=== PATIENT | female | born 1945 | race Caucasian/White ===

== ENCOUNTER → 2018-07-25 | Outpatient (CLI) | payer MEDICARE ==
[2018-07-25 11:37] LABS: Basophils % (A) 1 %; Eosinophils # (A) 0.4 k/uL (0-0.7); Eosinophils % (A) 7 %; HCT 38.3 % (34.0-46.0); HGB 12.4 gm/dL (11.4-16.0); Lymphocytes # (A) 1.4 k/uL (1.0-4.8); Lymphocytes % (A) 27 %; MCH 27.6 pg (25.0-35.0); MCHC 32.3 g/dL (31.0-37.0); MCV 85.5 fL (80.0-100.0); Mean Platelet Volume 6.2; Monocytes # (A) 0.3 k/uL (0-1.0); Monocytes % (A) 5 %; Neutrophils # (A) 2.9 k/uL (1.3-7.7); Neutrophils % (A) 57 %; Platelet Count 303 k/uL (150-450); RBC 4.48 m/uL (3.80-5.40); RDW 13.6 % (11.5-15.5)
[2018-07-25 11:42] LABS: Prothrombin Time 10.3 sec (9.0-12.0)
[2018-07-25 11:48] LABS: Albumin 3.4 g/dL (3.5-5.0); Calcium 8.5 mg/dL (8.4-10.2); Potassium 5.2 mmol/L (3.5-5.1); Total Bilirubin 1.1 mg/dL (0.2-1.3); Total Protein 6.1 g/dL (6.3-8.2)
== END ==
LOC: LABPAT 10:43
PROVIDERS: ATTEND Family Medicine
DX: Z01.812 Encounter for preprocedural laboratory examination (principal); S36.3 Injury of stomach; I10 Essential (primary) hypertension; E03.9 Hypothyroidism, unspecified; R10.10 Upper abdominal pain, unspecified; R11.0 Nausea; E11.8 Type 2 diabetes mellitus with unspecified complications; I07.1 Rheumatic tricuspid insufficiency
CPT/HCPCS: 80053; 82728; 84443; 85025; 85610; 87070

== ENCOUNTER → 2019-05-13 | Outpatient (CLI) | payer MEDICARE ==
[2019-05-13 12:44] LABS: Potassium 4.6 mmol/L (3.5-5.1)
[2019-05-13 12:51] LABS: Basophils # (A) 0.1 k/uL (0-0.2); Basophils % (A) 1 %; Eosinophils # (A) 0.3 k/uL (0-0.7); Eosinophils % (A) 4 %; HCT 37.5 % (34.0-46.0); HGB 12.1 gm/dL (11.4-16.0); Lymphocytes # (A) 1.4 k/uL (1.0-4.8); Lymphocytes % (A) 20 %; MCH 27.3 pg (25.0-35.0); MCHC 32.3 g/dL (31.0-37.0); MCV 84.5 fL (80.0-100.0); Mean Platelet Volume 6.2; Monocytes # (A) 0.4 k/uL (0-1.0); Monocytes % (A) 5 %; Neutrophils # (A) 4.8 k/uL (1.3-7.7); Neutrophils % (A) 68 %; Platelet Count 327 k/uL (150-450); RBC 4.44 m/uL (3.80-5.40); RDW 13.9 % (11.5-15.5); WBC 7.1 k/uL (3.8-10.6)
[2019-05-13 12:58] LABS: INR 0.9 (<1.2); Partial Thromboplastin Time 23.8 sec (22.0-30.0); Prothrombin Time 9.7 sec (9.0-12.0)
== END | disposition home or self-care (01) ==
LOC: LABPAT 11:38
PROVIDERS: ATTEND Orthopaedic Surgery
DX: Z01.812 Encounter for preprocedural laboratory examination (principal); M17.11 Unilateral primary osteoarthritis, right knee
CPT/HCPCS: 80051; 85025; 85610; 85730; 87070

== ENCOUNTER 2019-06-02 05:43 | Inpatient (IN) | payer MEDICARE ==
[2019-05-27 15:04] VITALS: BMI 29.4
--- NOTE | 2019-06-01 09:39 | HP ---
HISTORY AND PHYSICAL REASON FOR ADMISSION: Surgery 06/02/2019 Hailey Whittaker is a 73-year-old patient seen with symptomatic right knee osteoarthritis. We discussed treatment options with her. She elected to proceed with right total knee arthroplasty. Consent regarding the procedure was obtained. Cardiac clearance was provided by Dr. Espinosa. PAST MEDICAL HISTORY: Hypertension, [id number]-dezlcyuhs diabetes, hypothyroidism, gastroesophageal reflux disease. PAST SURGICAL HISTORY: Left ankle surgery, cholecystectomy, gastric bypass surgery. MEDICATIONS: Metformin, levothyroxine, Neurontin, Prilosec, Crestor, Lexapro, Plavix. ALLERGIES: AMLODIPINE, CODEINE. SOCIAL HISTORY: She denies current tobacco use. PHYSICAL EXAMINATION: Evaluation of the right knee: Range of motion is -5 to 115. Medial joint line tenderness, lateral joint line tenderness. Crepitus along the lateral patellofemoral compartments. Pain with patellofemoral compression. Ligaments stable. Hip rotation without pain. Distal neurovascular exam intact. Right knee radiographs reveal severe osteoarthritis. IMPRESSION: 1. Osteoarthritis. 2. Hypertension. 3. Hyperlipidemia. 4. Hypothyroidism. PLAN: Right total knee arthroplasty. Surgery scheduled for 06/02/2019. MMODL / IJN: [id number] /
[~2019-06-02 05:43] MED LIST: ACETAMINOPHEN TAB 500 MG TAB PO ONE; TRANEXAMIC ACID 1,000 MG in SODIUM CHLORIDE 0.9% 100 ML IVPB ONE
[2019-06-02] MEDS ORDERED: ROPIVACAINE 246.25 MG, EPINEPHrine 0.5 MG, KETOROLAC 30 MG, cloNIDine HCL/PF 80 MCG, WA... MISCELLANE ONE ×5 (06:00)
[2019-06-02] MEDS ORDERED: DEXAMETHASONE SOD PHOSPHATE 10 MG/ML 1 ML VIAL IV ONE (06:03)
[2019-06-02] MEDS ORDERED: ONDANSETRON 4 MG/2 ML VIAL IVP ONE (06:03)
[2019-06-02] MEDS ORDERED: MIDAZOLAM 2 MG/2 ML VIAL IV PRN (06:03)
[2019-06-02] MEDS ORDERED: LIDOCAINE 1% 20 ML VIAL (10MG/ML) FOR IV START INTRADERMA ONE (06:38)
[2019-06-02] MEDS: LACTATED RINGERS 1,000 ML IV SCH (06:38)
[2019-06-02 06:39] LABS: Glucose,Whole Blood 122 mg/dL (75-99)
[2019-06-02] MEDS ORDERED: fentaNYL (PF) 50 MCG/ML 2 ML AMP IV ONE (06:45)
[2019-06-02] MEDS ORDERED: MIDAZOLAM 2 MG/2 ML VIAL IV ONE (06:45)
[2019-06-02] MEDS ORDERED: TRANEXAMIC ACID 1,000 MG/10 ML VIAL ONE (07:18)
[2019-06-02] MEDS ORDERED: SODIUM CHLORIDE 0.9% 100 ML BAG ONE (07:18)
[2019-06-02] MEDS ORDERED: LIDOCAINE 1% INJ 10MG/ML (20 ML MDV) ONE (07:18)
[2019-06-02] MEDS ORDERED: PROPOFOL 10 MG/ML 20 ML VIAL IV ONE (07:18)
[2019-06-02] MEDS ORDERED: fentaNYL (PF) 50 MCG/ML 2 ML AMP ONE (07:18)
[2019-06-02] MEDS ORDERED: MIDAZOLAM 2 MG/2 ML VIAL ONE (07:18)
[2019-06-02] MEDS ORDERED: diphenhydrAMINE 50 MG/ML 1 ML VIAL ONE (07:18)
[2019-06-02] MEDS ORDERED: ROPIVACAINE 0.2%-NS ON-Q PUMP 1,090 MG, EMPTY PAIN BALL 1 EACH MISCELLANE PRN (07:53)
--- NOTE | 2019-06-02 07:55 | P.ANPRN ---
Procedure Note - Anesthesia - Nerve Block Performed Right Adductor Canal Infusion Time Out Performed: Yes Date of Procedure: 06/02/19 Procedure Start Time: 06:44 Procedure Stop Time: 06:56 Location of Patient Procedure: PreOp Indication: Acute Post-Operative Pain, Requested by Surgeon Specifically requested for management of pain by DrClement: Aleks Barnett Sedation Type: Sedate with meaningful contact maintained Preparation: Sterile Prep Position: Supine Catheter Depth at Skin (cm): 7 Catheter: Indwelling Needle Types: Pajunk Needle Gauge: 18 Ultrasound used to visualize needle placement: Yes Ultrasound used to observe medication spread: Yes Injectate: 0.5% Ropivacaine (see comment for volume) (20 cc) Blood Aspirated: No Pain Paresthesia on Injection Noted: No Resistance on Injection: Normal Image Stored and Saved: Yes Events: Uneventful and Well Tolerated
[2019-06-02] MEDS ORDERED: ceFAZolin 3,000 MG in SODIUM CHLORIDE 0.9% IRRIGATIO 3,000 ML IRRIGATION ONE (08:05)
[2019-06-02] MEDS ORDERED: LACTATED RINGERS 1,000 ML IV ONE (09:08)
[2019-06-02] MEDS ORDERED: NALOXONE 0.4 MG/ML 1 ML VIAL IV PRN (09:27)
[2019-06-02] MEDS ORDERED: ACETAMINOPHEN TAB 325 MG TAB PO PRN (09:27)
[2019-06-02] MEDS ORDERED: ONDANSETRON 4 MG/2 ML VIAL IVP PRN (09:27)
[2019-06-02] MEDS ORDERED: MAGNESIUM HYDROXIDE 2,400 MG/10 ML CUP PO PRN (09:27)
--- NOTE | 2019-06-02 09:41 | P.OP ---
Date of Procedure: 06/02/19 Preoperative Diagnosis: Right knee osteoarthritis Postoperative Diagnosis: Right knee osteoarthritis Procedure(s) Performed: Right total knee arthroplasty Implants: 1. Microport evolution size 5 right cemented femur 2. Microport evolution size 6 right cemented tibial baseplate 3. Microport evolution size 6 right 10 mm MP polyethylene tibial insert 4. Microport advanced 35 mm all polyethylene cemented patella Anesthesia: regional (Adductor canal catheter), local, spinal Surgeon: Aleks Barnett Mat Tester #1: Fabian Hernandez Estimated Blood Loss (ml): 25 Pathology: other (Bone) Condition: stable Disposition: PACU Indications for Procedure: 73-year-old patient seen with symptomatic right knee osteoarthritis. After treatment options were discussed, she elected to proceed with total knee arthroplasty. Operative Findings: see description of procedure Description of Procedure: Patient was taken to the operative suite after having an adductor canal catheter placed by the department of anesthesia for postoperative pain management. Patient underwent a spinal anesthetic by the department of anesthesia. Patient was given preoperative IV intake antibiotics and TXA. A well-padded tourniquet was placed about the right lower extremity. The lower extremity was then prepped and draped in the normal sterile orthopedic fashion. The extremity was elevated, a tourniquet was insufflated to 300. A standard anterior incision was made sharply through skin. Dissection was taken down through the subcutaneous soft tissues down to the extensor mechanism. A medial arthrotomy was performed, patella was everted and knee was flexed. There was advanced osteoarthritis noted. I introduced my distal intramedullary femoral drill. I then introduced the distal femoral cutting jig. Martin PEDERSEN secured the cutting jig with 2 pins. I held retractors in position while Martin PEDESREN performed the distal femoral resection through the guide area we now removed her distal femoral cutting guide. We now placed our 4-in-1 femoral cutting block and positioned and it was secured with 2 pins by Martin PEDERSEN while I held the block in position. The distal femoral finishing was now completed. A proximal tibial cutting guide was positioned. I held the guide in the appropriate position with both hands well Martin PEDERSEN inserted stabilizing pins into the guide. Proximal tibial cut was made. We now placed a trial femoral component into position, along with an appropriate size tibial tray and insert. We now took the knee through range of motion and had full extension good flexion and good overall soft tissue balance noted. The patella was everted and stabilized with 2 towel clips held by Martin PEDERSEN while I performed a flush with patellar quad tendon utilizing a fresh sawblade. We templated the patella, appropriate drill holes were made. An appropriate trial patella was positioned, knee was taken through full range of motion with the patella tracking very nicely. The trial patella was removed. Drill holes were made through the femoral component. All trial components were removed after marking off the appropriate rotation of the tibia. Retractors were now positioned along the proximal tibia. An appropriate keel punch was made with the appropriate size tibial guide by myself on Martin PEDERSEN assisted by holding retractors. At this point appropriate size implants were chosen and opened. The joint was irrigated copiously with pulse lavage mechanical irrigation. The posterior capsule was infiltrated with local analgesic. The wound was irrigated with pulse lavage mechanical irrigation. We mixed antibiotic methylmethacrylate. We placed the knee into flexion. We placed multiple retractors assisted by Martin PEDERSEN to expose the proximal tibia. Once the methyl methacrylate was ready, the tibial component was cemented into place removing any excess methylmethacrylate form by both myself and Martin PEDRESEN. The femoral component was cemented into place removing the removing any excess methylmethacrylate performed by both myself and Martin PEDERSEN. We then inserted the appropriate size polyethylene tibial insert. We made sure that it was locked into position. We took the knee into full extension, and then back in a flexion making sure we had removed any excess methylmethacrylate. The patellar component was then cemented down and secured with clamp. Excess methylmethacrylate removed. We kept the knee in full extension, patellar clamp in position until methylmethacrylate had hardened. Once it had hardened the patellar clamp was removed. The knee was taken through full range of motion. The patella tracked nicely. There was good soft tissue balancing. The tourniquet was now released. Additional hemostasis was achieved via electrocautery. A second gram of TXA was given. The wound again was irrigated with pulse lavage mechanical irrigation. The superficial soft tissues were infiltrated local analgesic. The extensor mechanism was repaired with Vicryl. We checked the repair with range of motion and it was stable. The subcutaneous soft tissues were repaired with Vicryl in layers. The skin was approximated with pernio/Dermabond. Sterile dressings were applied followed by loose web roll and Deion bandage. The patient was transferred to a bed, and taken to recovery in stable and satisfactory condition. Martin PEDERSEN assisted with this complex procedure.
--- NOTE | 2019-06-02 10:10 | XR ---
EXAMINATION TYPE: XR knee limited RT DATE OF EXAM: 06/02/2019 COMPARISON: NONE TECHNIQUE: Two views submitted HISTORY: Post op FINDINGS: There is a prosthetic knee in near anatomic alignment. There is soft tissue edema and emphysema. Ley rgical doc noted. IMPRESSION: 1. Postoperative change. Appears in near-anatomic alignment
[2019-06-02] MEDS: fentaNYL (PF) 50 MCG/ML 2 ML AMP IV PRN ×2 (10:50→12:00)
[2019-06-02] MEDS: HYDROcodone/APAP 5-325MG 1 EACH TAB PO PRN ×3 (13:25→20:09)
--- NOTE | 2019-06-02 16:00 | P.CONS ---
History of Present Illness - Reason for Consult Consult date: 06/02/19 Medical management Requesting physician: Aleks Barnett - Chief Complaint Medical management - History of Present Illness 73-year-old female with PMH of IBS, hypertension, hypothyroidism and osteoarthritis presents to [facility] for elective total right knee replacement. Patient was seen and examined after her procedure. Sound physicians as being consulted for medical management of this patient. Patient currently complains of knee pain, only when she ambulates to the washroom, 7 out of 10 in severity. She has received 2 [place] so far. Otherwise, patient with no complaints. She denies any headaches, nausea or vomiting, fever or chills, cough, chest pain, shortness of breath, changes in urination or bowel habits. No changes in appetite or weight. Patient denies any dizziness, numbness/weakness/tingling of the extremities. Patient states that she has been able to urinate since her procedure. Still has not had a bowel movement neither she is passing gas. Review of Systems Pertinent positives and negatives as discussed in HPI, a complete review of systems was performed and all other systems are negative. Past Medical History Past Medical History: Cancer, Diabetes Mellitus, Fibromyalgia, GERD/Reflux, GI Bleed, Hypertension, Osteoarthritis (OA), Rheumatoid Arthritis (RA), Thyroid Disorder Additional Past Medical History / Comment(s): Recently stopped Metformin per Dr due to Hemoglobin A1C being 5.9. Recent diagnosis of IBS-C. HX OF THYROID CANCER 2012, GI HEMORRHAGE (RECEIVED 8 UNITS OF BLOOD, 2016), OCCULAR MIGRAINES, VARICOSE VEINS, AORTIC STENOSIS, STATES ASBESTOSIS (DENIES SYMPTOMS), BACK AND RIGHT KNEE PAIN. Right hip pain. History of Any Multi-Drug Resistant Organisms: None Reported Past Surgical History: Adenoidectomy, Bariatric Surgery, Cardiac Valve Replacement, Cholecystectomy, Tonsillectomy Additional Past Surgical History / Comment(s): Aortic valve replaceemnt 12/09/2018. TOTAL THYROIDECTOMY, GASTRIC BYPASS (2008) ORIF left ankle with hardware. Past Anesthesia/Blood Transfusion Reactions: Motion Sickness Additional Past Anesthesia/Blood Transfusion Reaction / Comm: MOTION SICKNESS WITH OCCIPITAL MIGRAINES. HX OF BLOOD TRANSFUSIONS- NO REACTION. Past Psychological History: Anxiety Smoking Status: Former smoker Past Alcohol Use History: Occasional Additional Past Alcohol Use History / Comment(s): QUIT SMOKING in 1984. STARTED SMOKING AGE 17, SMOKED 1/2PPD. Past Drug Use History: None Reported - Past Family History Mother Family Medical History: Cancer Additional Family Medical History / Comment(s): BREAST CANCER. Father Family Medical History: COPD Additional Family Medical History / Comment(s): ASBESTOSIS. Brother(s) Family Medical History: Cancer Additional Family Medical History / Comment(s): MESOTHELIOMA. Medications and Allergies Home Medications Medication Instructions Recorded Confirmed Type ALPRAZolam [Xanax] 0.5 mg PO HS 07/18/18 06/02/19 History Gabapentin [Neurontin] 300 mg PO HS 07/18/18 06/02/19 History Levothyroxine Sodium [Synthroid] 137 mcg PO DAILY 07/18/18 06/02/19 History Magnesium Gluconate [Magonate] 500 mg PO HS 07/18/18 06/02/19 History Pantoprazole Sodium [Protonix] 40 mg PO BID 07/18/18 06/02/19 History traMADol HCL [Ultram] 50 mg PO DAILY 07/18/18 06/02/19 History Aspirin [Adult Low Dose Aspirin EC] 81 mg PO DAILY 05/27/19 06/02/19 History Carvedilol [Coreg] 3.125 mg PO BID 05/27/19 06/02/19 History Fiber 2 - 4 tab PO DAILY 05/27/19 06/02/19 History Lisinopril [Prinivil] 10 mg PO HS 05/27/19 06/02/19 History Loratadine [Claritin] 10 mg PO DAILY 05/27/19 06/02/19 History Lovastatin [Mevacor] 10 mg PO Q48H 05/27/19 06/02/19 History Sennosides [Senna] 2 tab PO DAILY 05/27/19 06/02/19 History Allergies Allergy/AdvReac Type Severity Reaction Status Date / Time codeine Allergy Unknown Chest Pain Verified 06/02/19 06:27 NSAIDS (Non-Steroidal Allergy Unknown HX OF GI Verified 06/02/19 06:27 Anti-Inflamma HEMMORHAGE Physical Exam Vitals: Vital Signs Temp Pulse Pulse Resp BP Pulse Ox 06/02/19 15:13 16 06/02/19 12:56 98.5 F 83 16 158/83 96 06/02/19 12:00 67 16 131/63 98 06/02/19 11:30 72 18 131/65 97 06/02/19 11:00 67 16 124/58 99 06/02/19 10:30 69 18 137/65 100 06/02/19 10:00 63 16 146/57 100 06/02/19 09:45 66 16 152/67 96 06/02/19 09:30 82 18 168/73 100 06/02/19 09:21 96.8 F L 70 16 180/74 100 06/02/19 06:15 97.2 F L 76 16 161/83 97 Intake and Output 06/02/19 06/02/19 06/02/19 06:59 14:59 22:59 Intake Total 200 1847 Output Total 25 Balance 200 1822 Intake: IV 200 1251 Oral 596 Output: Estimated Blood Loss 25 General: [non toxic], [no distress], [appears at stated age] Derm: [warm], [dry] Head: [atraumatic], [normocephalic], [symmetric] Eyes: [EOMI], [no lid lag], [anicteric sclera] Mouth: [no lip lesion], [mucus membranes moist] Cardiovascular: [S1S2 reg], [no murmur], [positive DP pulse bilateral], Lungs: [CTA bilateral], [no rhonchi, no rales] , [no accessory muscle use] Abdominal: [soft], [ nontender to palpation], [no guarding], [no appreciable organomegaly] Ext: [no gross muscle atrophy], [no edema], [no contractures], [right knee wrapped with dressing clean dry and intact, limited range of motion due to pain and stiffness] Neuro: [ CN II-XI grossly intact], [no focal neuro deficits] Psych: [Alert], [oriented], [appropriate affect] Results Labs: Abnormal Lab Results - Last 24 Hours (Table) 06/02/19 Range/Units 06:34 POC Glucose (mg/dL) 122 H (75-99) mg/dL Assessment and Plan Assessment: Assessment and plan Irritable bowel syndrome Hypertension Hypothyroidism History of aortic valve replacement Status post total right knee replacement Plans: Aggressive bowel regimen. BP 158/83. Plans: Continue Coreg, lisinopril. Monitor vitals, adjust medications as necessary. Plans: Resume Synthroid. Plans: Need adequate follow-up with cardiology in the outpatient setting. Plans: Management as per orthopedic surgery. DVT prophylaxis: [SCD boots] Discussed with: [Patient] Anticipated discharge: [1 day] Anticipated discharge place: [Home] A total of [45] minutes was spent on the care of this complex patient more than 50% of the time was spent in counseling and care coordination. Patient names her sons Wallace and Loy decision-maker in the case that she can't make decisions for herself. Patient reiterates wanting to remain full code at this time. Thank you for this consultation. Please call with any additional questions or concerns.
[2019-06-02] MEDS: CARVEDILOL 3.125 MG TAB PO SCH (16:36)
[2019-06-02] MEDS: PANTOPRAZOLE 40 MG TABLET PO SCH (16:36)
[2019-06-02] MEDS: HYDROmorphone 0.5 MG/0.5 ML SYRINGE IVP PRN (16:37)
[2019-06-02] MEDS: LISINOPRIL 10 MG TAB PO SCH (21:33)
[2019-06-02] MEDS: ALPRAZolam 0.5 MG TAB PO SCH (21:33)
[2019-06-02] MEDS: GABAPENTIN 300 MG CAP PO SCH (21:33)
[2019-06-02] MEDS: SENNOSIDES-DOCUSATE SODIUM 1 EACH TAB PO SCH (21:33)
[2019-06-03] MEDS: HYDROmorphone 0.5 MG/0.5 ML SYRINGE IVP PRN ×4 (00:02→16:54)
[2019-06-03] MEDS: traMADol 50 MG TAB PO PRN ×5 (02:19→23:25)
[2019-06-03] MEDS: LACTATED RINGERS 1,000 ML IV SCH (04:27)
[2019-06-03] MEDS: HYDROcodone/APAP 5-325MG 1 EACH TAB PO PRN (05:21)
[2019-06-03] MEDS: LEVOTHYROXINE 137 MCG TAB PO SCH (05:21)
[2019-06-03] MEDS: SENNOSIDES 8.6 MG TAB PO SCH (07:30)
[2019-06-03] MEDS: ENOXAPARIN 40 MG/0.4 ML SYRINGE SQ SCH (07:31)
[2019-06-03] MEDS: PANTOPRAZOLE 40 MG TABLET PO SCH ×2 (07:31→16:54)
[2019-06-03] MEDS: ASPIRIN 81 MG PO SCH (07:31)
[2019-06-03] MEDS: CARVEDILOL 3.125 MG TAB PO SCH ×2 (07:31→16:54)
[2019-06-03 07:41] LABS: Basophils % (A) 0 %; Eosinophils # (A) 0.1 k/uL (0-0.7); Eosinophils % (A) 1 %; HCT 31.2 % (34.0-46.0); HGB 10.1 gm/dL (11.4-16.0); Lymphocytes # (A) 1.2 k/uL (1.0-4.8); Lymphocytes % (A) 12 %; MCHC 32.4 g/dL (31.0-37.0); MCV 83.3 fL (80.0-100.0); Mean Platelet Volume 5.7; Monocytes # (A) 0.6 k/uL (0-1.0); Monocytes % (A) 6 %; Neutrophils % (A) 79 %; Platelet Count 271 k/uL (150-450); RBC 3.75 m/uL (3.80-5.40); RDW 13.2 % (11.5-15.5); WBC 10.1 k/uL (3.8-10.6)
[2019-06-03] MEDS ORDERED: ATORVASTATIN 10 MG TAB PO SCH (09:00)
[2019-06-03] MEDS ORDERED: HYDROcodone/APAP 7.5-325MG 1 EACH TAB PO PRN ×2 (09:54→10:03)
--- NOTE | 2019-06-03 10:40 | P.PN ---
Subjective Progress Note Date: 06/03/19 Principal diagnosis: knee pain Patient is a 73-year-old female with a past medical history of fibromyalgia, irritable bowel syndrome constipation type, hypothyroidism, and osteoarthritis who presented to [facility] for elective right total knee replacement. She underwent a right total knee by Dr. Barnett on 06/02. Initially her pain was controlled well. However this morning at 1:30 she had acute severe pain in her knee. She states that she was no longer taking the Dilaudid and the Forgan did not help. Patient seen and examined at bedside. She is very upset and crying. She is complaining that her pain is not well controlled. Today when she tried to stand she got very dizzy and felt slightly nauseous. She has now recovered. She has no history of dizziness in the past. She did have some dizziness after her thyroidectomy. We discussed upping her Forgan and she hasn't agreement. She states that the pain is restarting approximately an hour before her Forgan was 2. With the BI Salazar Objective - Vital Signs Vital signs: Vital Signs Temp 99.0 F 06/03/19 07:00 Pulse 60 06/03/19 08:55 Resp 17 06/03/19 07:40 BP 119/70 06/03/19 08:55 Pulse Ox 95 06/03/19 07:00 Intake & Output 06/02/19 06/03/19 06/03/19 18:59 06:59 18:59 Intake Total 2143 Output Total 25 Balance 2118 Intake: IV 1251 Oral 892 Output: Estimated Blood Loss 25 Other: Voiding Method Toilet Toilet # Voids 3 - Exam General: non toxic, no distress, appears at stated age Derm: warm, dry Head: atraumatic, normocephalic, symmetric Eyes: EOMI, no lid lag, anicteric sclera Mouth: no lip lesion, mucus membranes moist Cardiovascular: S1S2 reg, no murmur, positive posterior tibial pulse bilateral, Lungs: Decreased bs bilateral, no rhonchi, no rales , no accessory muscle use Abdominal: soft, nontender to palpation, no guarding, no appreciable organomegaly Ext: no gross muscle atrophy, 1+ edema right lower extremity, no contractures Neuro: CN II-XI grossly intact, no focal neuro deficits Psych: Alert, oriented, appropriate affect - Labs CBC & Chem 7: 06/03/19 06:22 Labs: Abnormal Lab Results - Last 24 Hours (Table) 06/03/19 Range/Units 06:22 RBC 3.75 L (3.80-5.40) m/uL Hgb 10.1 L (11.4-16.0) gm/dL Hct 31.2 L (34.0-46.0) % Neutrophils # 8.0 H (1.3-7.7) k/uL Assessment and Plan Assessment: Osteoarthritis Right knee s/p TKA with uncontrolled pain - Increased norco to 7.5 mg 2 tale q 6 hours, d/w ortho 10 q 4 hours to limit tylenol - PT/OT Dizziness - likely postop - check orthostatic vitals Acute blood loss anemia, anticipated outcome of surgery - no additional intervention - avoid iron with HX of constipation - should correct over the next 4-6 weeks with normal diet DM 2, diet controlled - add accucheck - A1C 5.9 per patient HTN - coreg, lisinopril - follow BP Hypothyroidism - synthroid IBS- constipation - continue aggressive bowel regiment Chronic: Fibro GERD RA THyroid cancer Occular migraines Aortic stenosis s/p valve replacement Discharge med rec reviewed and updated.
[2019-06-03] MEDS: HYDROcodone/APAP 10-325MG 1 EACH TAB PO PRN ×3 (10:42→20:48)
[2019-06-03] MEDS: LORATADINE 10 MG TAB PO SCH (10:44)
--- NOTE | 2019-06-03 11:25 | P.PN ---
Progress Note - Text Anesthesia POD 654. Patient is status post right TKR under spinal anesthesia anesthesia with a right adductor canal catheter placed for postoperative pain relief. With ropivacaine 0.2% running at 8 cc's per hour, the patient's VAS is (2, 4 anteriorly). Catheter site is clean dry and intact.
[2019-06-03 11:33] LABS: Glucose,Whole Blood 131 mg/dL (75-99)
[2019-06-03] MEDS ORDERED: SODIUM CHLORIDE 0.9% 500 ML 500 ML IV ONE (11:55)
--- NOTE | 2019-06-03 13:31 | P.PN ---
Subjective Progress Note Date: 06/03/19 Principal diagnosis: Status post right total knee arthroplasty Patient evaluated on 2 separate occasions today. Patient had had some increase in pain starting last night administered and an interrupted today. She also had a episode of hypotension when getting up. We've increased her oral medication at this time, she is also receiving a fluid bolus. Internal medicine is also following patient. Objective - Vital Signs Vital signs: Vital Signs Temp 99.0 F 06/03/19 07:00 Pulse 60 06/03/19 08:55 Resp 17 06/03/19 07:40 BP 129/72 06/03/19 11:29 Pulse Ox 95 06/03/19 07:00 Intake & Output 06/02/19 06/03/19 06/03/19 18:59 06:59 18:59 Intake Total 2143 Output Total 25 Balance 2118 Intake: IV 1251 Oral 892 Output: Estimated Blood Loss 25 Other: Voiding Method Toilet Toilet # Voids 3 - Exam Right lower extremity: Incision is clean, dry, and intact. The doc is in good condition. There is minimal soft tissue swelling and ecchymosis surrounding the medial and lateral aspects of the incision. Calf is soft, no tenderness with palpation. Plantar flexion, dorsiflexion, EHL, FHL are intact. Sensory exam to light touch throughout the extremity is intact, dorsal pedis pulses 2+. - Labs CBC & Chem 7: 06/03/19 06:22 Labs: Abnormal Lab Results - Last 24 Hours (Table) 06/03/19 06/03/19 Range/Units 06:22 11:31 RBC 3.75 L (3.80-5.40) m/uL Hgb 10.1 L (11.4-16.0) gm/dL Hct 31.2 L (34.0-46.0) % Neutrophils # 8.0 H (1.3-7.7) k/uL POC Glucose (mg/dL) 131 H (75-99) mg/dL Assessment and Plan Plan: Assessment: Postoperative day 1 status post right total knee arthroplasty Orthostatic hypotension Plan: Pain control, we did adjust oral medication GI and DVT prophylaxis, continue current medication Continue her current physical therapy Wound care instructions discussed Continue icing and elevating Medical recommendations Due to pain control and orthostatic hypotension, patient will stay 1 additional night. Placement type will be altered to inpatient Time with Patient: Less than 30
[2019-06-03 16:44] LABS: Glucose,Whole Blood 145 mg/dL (75-99)
[2019-06-03] MEDS: SENNOSIDES-DOCUSATE SODIUM 1 EACH TAB PO SCH (20:48)
[2019-06-03] MEDS: ALPRAZolam 0.5 MG TAB PO SCH (20:48)
[2019-06-03] MEDS: GABAPENTIN 300 MG CAP PO SCH (20:48)
[2019-06-03] MEDS: LISINOPRIL 10 MG TAB PO SCH (20:48)
[2019-06-03 20:54] LABS: Glucose,Whole Blood 190 mg/dL (75-99)
[2019-06-03] MEDS: MAGNESIUM OXIDE 400 MG TAB PO SCH (21:27)
[2019-06-04] MEDS: LACTATED RINGERS 1,000 ML IV SCH (00:29)
[2019-06-04] MEDS: HYDROcodone/APAP 10-325MG 1 EACH TAB PO PRN ×3 (01:17→11:35)
[2019-06-04] MEDS: HYDROmorphone 0.5 MG/0.5 ML SYRINGE IVP PRN (04:17)
[2019-06-04] MEDS: LEVOTHYROXINE 137 MCG TAB PO SCH (05:14)
--- NOTE | 2019-06-04 05:48 | XR ---
EXAMINATION TYPE: XR knee limited RT DATE OF EXAM: 06/04/2019 COMPARISON: 06/02/2019 HISTORY: Pain TECHNIQUE: 2 views. FINDINGS: There is anterior skin doc. There is a right knee prosthesis. I see no fracture nor dislocation. IMPRESSION: Right knee prosthesis. No complicating process seen. No change in position compared to la st exam.
[2019-06-04] MEDS: traMADol 50 MG TAB PO PRN (06:02)
[2019-06-04 06:57] LABS: Glucose,Whole Blood 121 mg/dL (75-99)
[2019-06-04 07:27] VITALS: BP 163/80; PULSE 86; RESP 16; TEMP 98.4
[2019-06-04] MEDS: ASPIRIN 81 MG PO SCH (07:40)
[2019-06-04] MEDS: LORATADINE 10 MG TAB PO SCH (07:40)
[2019-06-04] MEDS: ENOXAPARIN 40 MG/0.4 ML SYRINGE SQ SCH (07:40)
[2019-06-04] MEDS: CARVEDILOL 3.125 MG TAB PO SCH (07:40)
[2019-06-04] MEDS: PANTOPRAZOLE 40 MG TABLET PO SCH (07:40)
[2019-06-04] MEDS: SENNOSIDES 8.6 MG TAB PO SCH (07:40)
[2019-06-04 08:36] LABS: HCT 31.4 % (34.0-46.0); HGB 10.3 gm/dL (11.4-16.0); MCH 27.1 pg (25.0-35.0); MCHC 32.9 g/dL (31.0-37.0); MCV 82.6 fL (80.0-100.0); Mean Platelet Volume 7.8; Platelet Count 206 k/uL (150-450); RDW 13.5 % (11.5-15.5); WBC 8.4 k/uL (3.8-10.6)
[2019-06-04] MEDS: MAGNESIUM OXIDE 400 MG TAB PO SCH (09:42)
--- NOTE | 2019-06-04 10:50 | P.PN ---
Subjective Progress Note Date: 06/04/19 Principal diagnosis: Status post right total knee arthroplasty Patient doing well today, pain is better controlled. She is ambulating well therapy. Her blood pressures remained stable. Patient did have a fall early this morning when attempting to go to the bathroom, she was reaching for her cubital pain pump, which lost her balance. X-rays were done, they were negative for any fractures or dislocations. Objective - Vital Signs Vital signs: Vital Signs Temp 98.4 F 06/04/19 07:27 Pulse 86 06/04/19 07:27 Resp 16 06/04/19 07:27 BP 163/80 06/04/19 07:27 Pulse Ox 98 06/04/19 07:27 Intake & Output 06/03/19 06/04/19 06/04/19 18:59 06:59 18:59 Other: Voiding Method Toilet Toilet # Voids 2 2 - Exam Right lower extremity: Incision is clean, dry, and intact. The doc is in good condition. There is minimal soft tissue swelling and ecchymosis surrounding the medial and lateral aspects of the incision. Calf is soft, no tenderness with palpation. Plantar flexion, dorsiflexion, EHL, FHL are intact. Sensory exam to light touch throughout the extremity is intact, dorsal pedis pulses 2+. - Labs CBC & Chem 7: 06/04/19 08:16 Labs: Abnormal Lab Results - Last 24 Hours (Table) 06/03/19 06/03/19 06/03/19 Range/Units 11:31 16:39 20:52 Hgb (11.4-16.0) gm/dL Hct (34.0-46.0) % POC Glucose (mg/dL) 131 H 145 H 190 H (75-99) mg/dL 06/04/19 06/04/19 Range/Units 06:55 08:16 Hgb 10.3 L (11.4-16.0) gm/dL Hct 31.4 L (34.0-46.0) % POC Glucose (mg/dL) 121 H (75-99) mg/dL Assessment and Plan Plan: Assessment: Postoperative day #2 status post right total knee arthroplasty Orthostatic hypotension Plan: Pain control, continue [place] 10 mg 1 every 4 hours GI and DVT prophylaxis, Eliquis 2.5mg bid for 2 weeks Wound care instructions discussed Continue icing and elevating Medical recommendations Discharge home today Time with Patient: Less than 30
--- NOTE | 2019-06-04 10:53 | P.DS ---
Providers Date of admission: 06/02/2019 Expected date of discharge: 06/04/19 Attending physician: Aleks Barnett Consults: 06/02/19 09:29 Consult Physician Routine Consulting Provider: Abdoul Gilmore Consult Reason/Comments: Medical Management Do you want consulting provider notified?: Yes Primary care physician: Physician Nonstaff Hospital Course: Date of admission: 06/02/2019 Date of discharge: 06/04/2019 Admission diagnosis: Status post right total knee arthroplasty Discharge diagnosis: Same Attending physician: Dr. Barnett Surgical procedures: Right total knee arthroplasty Brief history: Patient is a 73-year-old female with a history of progressive primary right knee as her arthritis. At this point patient has failed conservative treatment measures and has opted to proceed with a elective right total knee arthroplasty. Hospital course: Details of patient's surgery can be found in operative report. Patient tolerated the procedure well and was subsequently transported to orthopedic floor. Patient's orthopeidc and medical care was provided daily. Patient had daily laboratory tests performed for evaluation of overall blood counts. Patient had daily physical therapy to include strengthening range of motion as well as education with walker ambulation. Patient had daily CPM usage as part of their physical therapy program. Patient was treated with Lovenox for their postoperative DVT prophylaxis during their inpatient stay. Patient was noted to have a relatively uneventful postoperative course. Patient reported satisfactory pain control with oral pain medications by postoperative day 0. Patient showed satisfactory progress with physical therapy. Patient moved steadily through the program and had no difficulty meeting the goals by p ostoperative day 2. Given patient's otherwise satisfactory course and having met physical therapy goals, plan is to discharge patient home on postoperative day 2. Discharge condition/disposition: Patient will be discharged home in stable condition. Discharge medications: Instructions are given on resumption of patient's normal daily medications per primary care recommendation, in addition patient will be prescribed Magnolia 10 mg/325 mg, Eliquis 2.5mg. Discharge instructions: 1. Wound care and infection precautions, keep incision dry and covered while showering, no lotions, creams, moisturizers. No soaking, tubs, pools, hottubs. Do not scrub over the incision. 2. Weight-bear as tolerated with walker / cane until follow-up. 3. Ice and elevate when necessary. Do not exceed 20 minutes per hour with ice pack. 4. Utilize compression sleeve until seen at first follow up appointment. 5. Visiting nursing care. 6. Home physical therapy including home CPM. 7. Pain meds and anticoagulants per prescription. 8. Pain medication has potential to cause constipation. Increase oral fluid and fiber intake. Contact primary care provider if you have not had a bowel movement within 48 hours after discharge 9. No anti-inflammatory medication until discussed at first post operative visit, this including Motrin, Aleve, Mobic, Diclofenac. 10. Follow up in office at 2 weeks postop with Martin Hernandez PA-C 11. Follow up with your primary care doctor 7-10 days after discharge. 12. Contact [facility] with any questions, . Procedures: Right total knee arthroplasty Patient Condition at Discharge: Good Plan - Discharge Summary Discharge Rx Participant: Yes New Discharge Prescriptions: New Apixaban [Eliquis] 2.5 mg PO BID #60 tab Hydrocodone/Acetaminophen [Magnolia 10-325] 1 each PO Q4H PRN #40 tab PRN Reason: Pain Continue Levothyroxine Sodium [Synthroid] 137 mcg PO DAILY Magnesium Gluconate [Magonate] 500 mg PO HS Gabapentin [Neurontin] 300 mg PO HS ALPRAZolam [Xanax] 0.5 mg PO HS Pantoprazole Sodium [Protonix] 40 mg PO BID Loratadine [Claritin] 10 mg PO DAILY Lovastatin [Mevacor] 10 mg PO Q48H Carvedilol [Coreg] 3.125 mg PO BID Sennosides [Senna] 2 tab PO DAILY Fiber 2 - 4 tab PO DAILY Lisinopril [Prinivil] 10 mg PO HS No Action traMADol HCL [Ultram] 50 mg PO DAILY Aspirin [Adult Low Dose Aspirin EC] 81 mg PO DAILY Discharge Medication List ALPRAZolam [Xanax] 0.5 mg PO HS 07/18/18 [History] Gabapentin [Neurontin] 300 mg PO HS 07/18/18 [History] Levothyroxine Sodium [Synthroid] 137 mcg PO DAILY 07/18/18 [History] Magnesium Gluconate [Magonate] 500 mg PO HS 07/18/18 [History] Pantoprazole Sodium [Protonix] 40 mg PO BID 07/18/18 [History] traMADol HCL [Ultram] 50 mg PO DAILY 07/18/18 [History] Aspirin [Adult Low Dose Aspirin EC] 81 mg PO DAILY 05/27/19 [History] Carvedilol [Coreg] 3.125 mg PO BID 05/27/19 [History] Fiber 2 - 4 tab PO DAILY 05/27/19 [History] Lisinopril [Prinivil] 10 mg PO HS 05/27/19 [History] Loratadine [Claritin] 10 mg PO DAILY 05/27/19 [History] Lovastatin [Mevacor] 10 mg PO Q48H 05/27/19 [History] Sennosides [Senna] 2 tab PO DAILY 05/27/19 [History] Apixaban [Eliquis] 2.5 mg PO BID #60 tab 06/04/19 [Rx] Hydrocodone/Acetaminophen [Magnolia 10-325] 1 each PO Q4H PRN #40 tab 06/04/19 [Rx] Follow up Appointment(s)/Referral(s): [facility] [NON-STAFF] - Fabian Hernandez PAC [PHYSICIAN SHAREPOINT APPLICATION ARCHITECT] - 06/18/19 1:30 pm Nonstaff,Physician [Primary Care Provider] - 1-2 Days Activity/Diet/Wound Care/Special Instructions: Orthopedic Discharge Instructions: 1. Wound care and infection precautions, keep incision dry and covered while showering, no lotions, creams, moisturizers. No soaking, pools, hot tubs. Do not scrub over incision. 2. Weight-bear as tolerated with walker / cane until follow-up. 3. Ice and elevate when necessary. Do not exceed 20 minutes per hour with ice pack. 4. Utilize compression sleeve until seen at first follow up appointment. 5. Pain meds and anticoagulants per prescription. 6. Pain medication has potential to cause constipation. Increase oral fluid and fiber intake. Contact primary care provider if you have not had a bowel movement within 48 hours after discharge. 7. No anti-inflammatory medication until discussed at first post operative visit, this including Motrin, Aleve, Mobic, Diclofenac. 8. Follow up in office at 2 weeks postop with Martin Hernandez PA-C 9. Follow up with your primary care doctor 7-10 days after discharge. 10. Contact [facility] with any questions, [phone]. 11. *Please call [employer] once home to arrange delivery of Continuous Passive Motion (CPM) machine - [phone] Discharge Disposition: HOME WITH HOME HEALTH SERVICES
--- NOTE | 2019-06-04 15:36 | P.PN ---
Subjective Progress Note Date: 06/04/19 (delayed charting seen at 1000) Principal diagnosis: knee pain Patient is a 73-year-old female with a past medical history of fibromyalgia, irritable bowel syndrome constipation type, hypothyroidism, and osteoarthritis who presented to [facility] for elective right total knee replacement. She underwent a right total knee by Dr. Barnett on 06/02. Initially her pain was controlled well. However this morning at 1:30 she had acute severe pain in her knee. She states that she was no longer taking the Dilaudid and the [place] did not help. Patient seen and examined at bedside. Fell last evening but doing overall well today. No chest pain, no shortness breath, pain is much better controlled, still no bowel movement. We discussed use of MiraLAX as needed while on narcotic therapy, we also discussed that if she is discharged on aspirin she does not need to take her daily baby aspirin in addition to this. Objective - Vital Signs Vital signs: Vital Signs Temp 98.4 F 06/04/19 07:27 Pulse 86 06/04/19 07:27 Resp 16 06/04/19 07:27 BP 163/80 06/04/19 07:27 Pulse Ox 98 06/04/19 07:27 Intake & Output 06/03/19 06/04/19 06/04/19 18:59 06:59 18:59 Other: Voiding Method Toilet Toilet # Voids 2 2 - Exam General: non toxic, no distress, appears at stated age Derm: warm, dry Head: atraumatic, normocephalic, symmetric Eyes: EOMI, no lid lag, anicteric sclera Mouth: no lip lesion, mucus membranes moist Cardiovascular: S1S2 reg, no murmur, positive posterior tibial pulse bilateral, Lungs: CTA bilateral, no rhonchi, no rales , no accessory muscle use Abdominal: soft, nontender to palpation, no guarding, no appreciable organomegaly Ext: no gross muscle atrophy, 1+ edema right lower extremity, no contractures Neuro: CN II-XI grossly intact, no focal neuro deficits Psych: Alert, oriented, appropriate affect - Labs CBC & Chem 7: 06/04/19 08:16 Labs: Abnormal Lab Results - Last 24 Hours (Table) 06/03/19 06/03/19 06/04/19 Range/Units 16:39 20:52 06:55 Hgb (11.4-16.0) gm/dL Hct (34.0-46.0) % POC Glucose (mg/dL) 145 H 190 H 121 H (75-99) mg/dL 06/04/19 Range/Units 08:16 Hgb 10.3 L (11.4-16.0) gm/dL Hct 31.4 L (34.0-46.0) % POC Glucose (mg/dL) (75-99) mg/dL Assessment and Plan Assessment: Constipation - add as needed miralax to home bowel regiment while on narcotics DM 2, diet controlled - add accucheck - A1C 5.9 per patient Acute blood loss anemia, anticipated outcome of surgery - no additional intervention - avoid iron with HX of constipation - should correct over the next 4-6 weeks with normal diet HTN - coreg, lisinopril - follow BPOsteoarthritis Right knee s/p TKA with uncontrolled pain - ortho recs orthostatic hypotension, resolved Hypothyroidism - synthroid IBS- constipation - continue aggressive bowel regiment Chronic: Fibro GERD RA Thyroid cancer Occular migraines Aortic stenosis s/p valve replacement Discharge med rec reviewed and updated. Medically optimized for discharge at the discretion of ortho
[2019-06-04 16:27] LABS: Hemoglobin A1C 6.3 % (4.0-6.0)
== END 2019-06-04 12:17 | disposition home health service (06) | DRG 470 ==
LOC: OR 05:43 → 4SSUR 12:12 → OR 06-03 13:31
PROVIDERS: ADMIT Orthopaedic Surgery; ATTEND Orthopaedic Surgery
PROC: 0SRC0J9 Replacement of Right Knee Joint with Synthetic Substitute, Cemented, Open Approach (ICD-10-PCS; principal; 2019-06-02 07:30)
DX: M17.11 Unilateral primary osteoarthritis, right knee (principal); D62 Acute posthemorrhagic anemia; I10 Essential (primary) hypertension; E11.9 Type 2 diabetes mellitus without complications; E78.5 Hyperlipidemia, unspecified; K21.9 Gastro-esophageal reflux disease without esophagitis; F41.9 Anxiety disorder, unspecified; K58.1 Irritable bowel syndrome with constipation; E89.0 Postprocedural hypothyroidism; M79.7 Fibromyalgia; M06.9 Rheumatoid arthritis, unspecified; G43.809 Other migraine, not intractable, without status migrainosus; I95.1 Orthostatic hypotension; W18.39XA Other fall on same level, initial encounter; Y92.238 Other place in hospital as the place of occurrence of the external cause; Z98.890 Other specified postprocedural states; Z88.5 Allergy status to narcotic agent; Z88.8 Allergy status to other drugs, medicaments and biological substances; Z87.19 Personal history of other diseases of the digestive system; Z85.850 Personal history of malignant neoplasm of thyroid; Z79.890 Hormone replacement therapy; Z90.49 Acquired absence of other specified parts of digestive tract; Z86.79 Personal history of other diseases of the circulatory system; Z87.09 Personal history of other diseases of the respiratory system; Y93.89 Activity, other specified; Z90.89 Acquired absence of other organs; Z98.84 Bariatric surgery status; Z95.2 Presence of prosthetic heart valve; Z87.891 Personal history of nicotine dependence; Z80.3 Family history of malignant neoplasm of breast; Z82.5 Family history of asthma and other chronic lower respiratory diseases; Z80.9 Family history of malignant neoplasm, unspecified; Z79.899 Other long term (current) drug therapy; Z79.82 Long term (current) use of aspirin; Z88.6 Allergy status to analgesic agent
CPT/HCPCS: 64448; 76942; 83036; 85025; 85027; 88305; 88311